=== PATIENT | female | born 1935 | race Caucasian/White ===

== ENCOUNTER 2017-03-10 09:42 | Emergency (ER) | payer OTHER ==
--- NOTE | 2017-03-10 09:57 | PDOC ---
History of Present Illness - General History Source: Patient, Family Exam Limitations: No Limitations - History of Present Illness Initial Comments: 03/10/17 10:46 The patient is a 81 year old female, with a significant past medical history of ASHD, asthma, CAD( s/p stents), TIA, hypertension, hyperlipidemia, and GI bleeds, who presents to the emergency department complaining of a cough, fever, and chest tightness for approximately 5 days. The patient reports she has been experiencing a cough productive of yellow sputum since the onset of her symptoms. Daughter reports a TMax of 101 F last night. Patient reports associated chest tightness, wheezing, and headache. She states she has been using her albuterol 2-3 times a day, with minimal relief. Patient reports she wanted to visit her PCP Dr. Huynh for her symptoms, but was unable to get an appointment any time soon. Patient reports her symptoms have worsened since their onset. She states she lives at home with her daughters family and states her son in law had the flu earlier this week. She reports returning from [place] approximately 1 month ago. She reports shortness of breath but denies any chest pain, diaphoresis, palpitations, lower extremity edema, or lightheadedness. She denies any chills or dizziness. She reports some abdominal pain in the past month, but denies any nausea, vomiting, diarrhea, constipation , melena, or hematochezia. She reports increased urinary frequency, but denies dysuria or hematuria. Allergies: Iodine PCP: Dr. Huynh Consulting Actuary: Dr. Louise Grocery Supervisor: Dr. Redd <Nate Cash - Last Filed: 03/10/17 17:01> <Dameon Mon - Last Filed: 03/12/17 07:24> - General Chief Complaint: Shortness of Breath Stated Complaint: DIFFICULTY BREATHING Time Seen by Provider: 03/10/17 09:56 Past History <Nate Cash - Last Filed: 03/10/17 17:01> - Past Medical History Asthma: Yes Cardiac Disorders: Yes (CAD) GI Disorders: Yes (GI bleed) HTN: Yes Hypercholesterolemia: Yes - Surgical History Cardiac Surgery: Yes (CARD STENT) Cholecystectomy: Yes - Psycho/Social/Smoking Cessation Hx Anxiety: No Suicidal Ideation: No Smoking History: Never smoked Hx Alcohol Use: No Drug/Substance Use Hx: No <Dameon Mon - Last Filed: 03/12/17 07:24> - Past Medical History Allergies/Adverse Reactions: Allergies Allergy/AdvReac Type Severity Reaction Status Date / Time iodine Allergy Verified 03/10/17 09:57 Home Medications: Ambulatory Orders Albuterol Sulfate [Proair Respiclick] 90 mcg IH DAILY 03/10/17 Amlodipine Besylate 5 mg PO DAILY 03/10/17 Aspirin [ASA -] 81 mg PO DAILY 03/10/17 Atorvastatin Ca [Lipitor] 10 mg PO HS 03/10/17 Losartan Potassium 25 mg PO DAILY 03/10/17 Metoprolol Succinate [Toprol Xl -] 25 mg PO DAILY 03/10/17 Ranolazine [Ranexa -] 500 mg PO BID 03/10/17 Review of Systems - Review of Systems Able to Perform ROS?: Yes Comments:: 03/10/17 10:46 GENERAL/CONSTITUTIONAL: Yes: +fever. No chills. No weakness. HEAD, EYES, EARS, NOSE AND THROAT: No change in vision. No ear pain or discharge. No sore throat. CARDIOVASCULAR: Yes: +shortness of breath, +chest tightness. RESPIRATORY: Yes: +cough, +wheezing., +dyspnea on exertion. No hemoptysis. GASTROINTESTINAL: Yes: +abdominal pain. No nausea, vomiting, diarrhea or constipation. GENITOURINARY: Yes: +frequency. No dysuria or hematuria. MUSCULOSKELETAL: No joint or muscle swelling or pain. No neck or back pain. SKIN: No rash NEUROLOGIC: Yes: +headache. No vertigo, loss of consciousness, or change in strength/sensation. ENDOCRINE: No increased thirst. No abnormal weight change. HEMATOLOGIC/LYMPHATIC: No anemia, easy bleeding, or history of blood clots. ALLERGIC/IMMUNOLOGIC: No hives or skin allergy. <Nate Cash - Last Filed: 03/10/17 17:01> *Physical Exam - Vital Signs Last Vital Signs Temp Pulse Resp BP Pulse Ox 98.7 F 87 18 144/71 98 03/10/17 09:53 03/10/17 09:53 03/10/17 09:53 03/10/17 09:53 03/10/17 10:00 - Physical Exam Comments: 03/10/17 10:47 GENERAL: Awake, alert, and fully oriented, in no acute distress HEAD: No signs of trauma EYES: PERRLA, EOMI, sclera anicteric, conjunctiva clear ENT: Auricles normal inspection, hearing grossly normal, nares patent, oropharynx clear without exudates. Moist mucosa NECK: Normal ROM, supple, no lymphadenopathy, JVD, or masses LUNGS: Diminished breath sounds. Clear to auscultation bilaterally. No wheezes , and no crackles HEART: Regular rate and rhythm, normal S1 and S2, no murmurs, rubs or gallops ABDOMEN: +Mild tenderness to palpation in LLQ. Soft, normoactive bowel sounds. No guarding, no rebound. No masses EXTREMITIES: Normal range of motion, no edema. No clubbing or cyanosis. No cords, erythema, or tenderness NEUROLOGICAL: Cranial nerves II through XII grossly intact. Normal speech, normal gait SKIN: Warm, Dry, normal turgor, no rashes or lesions noted. <Nate Cash - Last Filed: 03/10/17 17:01> Heart Score/ECG Review - ECG Intrepretation Comment:: 03/10/17 17:01 Vent Rate: 90 bpm IMPRESSION: Normal sinus rhythm. <Nate Cash - Last Filed: 03/10/17 17:01> ED Treatment Course - LABORATORY CBC & Chemistry Diagram: 03/10/17 10:25 03/10/17 10:25 - RADIOLOGY Radiograph Interpretation: 03/10/17 11:17 EXAM: CXR INTERPRETED BY: Dr. Figueroa REVIEWED BY: Dr. Mon IMPRESSION: A single view reveals a weak reveals a sclerotic knob, prominent percy, large heart but no sign of true infiltrate or failure. The angles are sharp. The bones and soft tissues are intact. There is little change since the prior percussion instructor study of 05/20/2016. Correlation recommended <Nate Cash - Last Filed: 03/10/17 17:01> - LABORATORY CBC & Chemistry Diagram: 03/10/17 10:25 03/10/17 10:25 <Dameon Mon - Last Filed: 03/12/17 07:24> Medical Decision Making - Medical Decision Making 03/10/17 12:25 First call placed to Dr. Huynh at 12:25. Case discussed at this time. <Nate Cash - Last Filed: 03/10/17 17:01> - Medical Decision Making 03/10/17 13:45 Rx called to [facility] in [facility] [phone] Levaquin, Medrol Dose Pack and Albuterol Inhaler 03/10/17 13:[address] Bernardo, who spoke with the patient's daughter. Will DC, Rx Called to Pharmacy in [facility]. Patient seen in concert with Internal Medicine Resident, Jacobo Valentin. I agree with his assessment and plan <Dameon Mon - Last Filed: 03/12/17 07:24> *DC/Admit/Observation/Transfer - Attestations Scribe Attestion: 03/10/17 10:47 Documentation prepared by Nate Cash, acting as medical or surgical instrument maker for Dameon Mon MD. <Nate Cash - Last Filed: 03/10/17 17:01> - Discharge Dispostion Admit: No - Attestations Physician Attestion: 03/10/17 09:57 I, Dr. Dameon Mon, attest that this document has been prepared under my direction and personally reviewed by me in its entirety. I further attest, that it accurately reflects all work, treatment, procedures and medical decision -making performed by me. <Dameon Mon - Last Filed: 03/12/17 07:24> Diagnosis at time of Disposition: Bronchitis - Discharge Dispostion Disposition: HOME Condition at time of disposition: Good - Referrals Referrals: Suresh Huynh MD [Primary Care Provider] - - Patient Instructions Printed Discharge Instructions: DI for Acute Bronchitis Additional Instructions: I called prescriptions to the [facility] in [facility], . Levaquin, Medrol and Albuterol. Hope you feel better soon. Best- Dr. Dameon Mon
[2017-03-10 09:58] VITALS: BMI 31.1
--- NOTE | 2017-03-10 10:37 | PDOC ---
History of Present Illness - General Chief Complaint: Shortness of Breath Stated Complaint: DIFFICULTY BREATHING Time Seen by Provider: 03/10/17 09:56 History Source: Patient, Family (daughter) Exam Limitations: No Limitations - History of Present Illness Initial Comments: 81 y/o F w/PMH of ASHD, HTN, hypercholesterolemia, TIA, asthma, diverticulosis presents to the ER with c/o worsening cough w/yellow sputum, shortness of breath , chest tightness (with no radiation of pain), headache since Monday. Pt had a fever of 101 yesterday night and has been using alb nebs which she normally does not use. She feels like she also has wheezing and c/o increased difficulty with breathing when walking. She has light-headedness and dizziness which she states is her usual and is not worsened at this time. She also had some nausea and vomiting over this time but is not nauseous at this time. She was in [place] 1 month ago and son in law is sick with the cold. She c/o increased urinary frequency. She has some LLQ abd pain over the last month but denies any blood in the stool. She also denies any peripheral swelling. 03/10/17 10:40 03/10/17 10:44 Past History - Past Medical History Allergies/Adverse Reactions: Allergies Allergy/AdvReac Type Severity Reaction Status Date / Time iodine Allergy Verified 03/10/17 09:57 Home Medications: Ambulatory Orders Albuterol Sulfate [Proair Respiclick] 90 mcg IH DAILY 03/10/17 Amlodipine Besylate 5 mg PO DAILY 03/10/17 Aspirin [ASA -] 81 mg PO DAILY 03/10/17 Atorvastatin Ca [Lipitor] 10 mg PO HS 03/10/17 Losartan Potassium 25 mg PO DAILY 03/10/17 Metoprolol Succinate [Toprol Xl -] 25 mg PO DAILY 03/10/17 Ranolazine [Ranexa -] 500 mg PO BID 03/10/17 Asthma: Yes Cardiac Disorders: Yes (CAD) GI Disorders: Yes (GI bleed) HTN: Yes Hypercholesterolemia: Yes - Surgical History Cardiac Surgery: Yes (CARD STENT) Cholecystectomy: Yes - Immunization History Immunization Up to Date: No - Psycho/Social/Smoking Cessation Hx Anxiety: No Suicidal Ideation: No Smoking History: Never smoked Have you smoked in the past 12 months: No Information on smoking cessation initiated: No Hx Alcohol Use: No Drug/Substance Use Hx: No Substance Use Type: None Review of Systems - Review of Systems Able to Perform ROS?: Yes Comments:: CONSTITUTIONAL: +fever Absent: no chills, no fatigue 0ENT: Absent: ear pain CARDIOVASCULAR: +chest tightness Absent: chest pain, no palpitations RESPIRATORY: dyspnea w/exertion, SOB, cough GI: +abd pain LLQ, nausea, vomiting Absent: no constipation, no diarrhea, blood in stool GENITOURINARY: +frequency Absent: dysuria, no frequency, no hematuria MUSCULOSKELETAL: +back pain (chronic) Absent: no arthralgia, no myalgia SKIN: Absent: rash NEURO: +headache *Physical Exam - Vital Signs Last Vital Signs Temp Pulse Resp BP Pulse Ox 98.7 F 87 18 144/71 98 03/10/17 09:53 03/10/17 09:53 03/10/17 09:53 03/10/17 09:53 03/10/17 10:00 - Physical Exam Comments: GENERAL: Well-appearing, well-nourished. No apparent distress. HEENT: Normocephalic, atraumatic. EOM intact. CARDIOVASCULAR: Normal S1, S2. Regular rate and rhythm. PULMONARY: Diminished breath sounds. Clear to auscultation bilaterally. No wheezing, no rhonchi. ABDOMEN: +mild tenderness to palpation in LLQ Soft, non-distended, non-tender. EXTREMITIES: Normal ROM in all four extremities. No gross deformities. No edema. SKIN: Warm, dry. NEUROLOGICAL: No focal neurological deficits. Heart Score/ECG Review - [place] Comment: NSR @ [address] segment changes noted QTc 442 ms ED Treatment Course - LABORATORY CBC & Chemistry Diagram: 03/10/17 10:25 03/10/17 10:25 - RADIOLOGY Radiology Studies Ordered: Category Date Time Status CXRPORT [CHEST X-RAY PORTABLE*] [RAD] Urgent Radiology 03/10/17 10:24 Ordered Medical Decision Making - Medical Decision Making 03/10/17 10:33 Will work up for PNA - ordered: CBC, CMP, Blood culture, CXR. Will also get EKG for chest tightness and cardiac profile. 03/10/17 10:44 EKG: NSR @ 90 bpm w/no ST changes 03/10/17 11:53 CXR with no acute pathology, WBC 10.3 Awaiting UA. *DC/Admit/Observation/Transfer Diagnosis at time of Disposition: Bronchitis - Discharge Dispostion Disposition: HOME Condition at time of disposition: Good - Referrals Referrals: Suresh Huynh MD [Primary Care Provider] - - Patient Instructions Printed Discharge Instructions: DI for Acute Bronchitis Additional Instructions: I called prescriptions to the [facility] in [facility], . Levaquin, Medrol and Albuterol. Hope you feel better soon. Best- Dr. Dameon Mon
[2017-03-10 10:50] LABS: BASOPHIL 0.4 % (0-2.0); EOSINOPHIL 0.3 % (0-4.5); MCH 28.7 pg (25.7-33.7); MCHC 33.1 g/dl (32.0-36.0); MEAN CELL VOLUME 86.6 fl (80-96); MEAN PLT VOLUME 8.8 fl (7.5-11.1); NEUTROPHILS 76.9 % (42.8-82.8); PLATELET COUNT 341 K/MM3 (134-434); RDW 14.1 % (11.6-15.6); WHITE BLOOD COUNT 10.3 K/mm3 (4.0-10.0)
[2017-03-10 11:08] LABS: ALBUMIN 4.1 g/dl (3.4-5.0); BILIRUBIN,TOTAL 0.4 mg/dL (0.2-1.0); CALCIUM 10.7 mg/dL (8.5-10.1); COCKROFT - GAULT 49.6485; CREATININE 1.1 mg/dL (0.55-1.02); TOT PROT 7.9 g/dl (6.4-8.2)
[2017-03-10 11:47] LABS: URINE APPEARANCE SLCLOUDY; URINE BILIRUBIN NEGATIVE (NEGATIVE); URINE BLOOD NEGATIVE (NEGATIVE); URINE COLOR AMBER; URINE GLUCOSE (UA) NEGATIVE (NEGATIVE); URINE KETONE TRACE (NEGATIVE); URINE LEUK ESTERASE NEGATIVE (NEGATIVE); URINE NITRITE NEGATIVE (NEGATIVE); URINE UROBILINOGEN NEGATIVE E.U./dl (0.2-1.0)
[2017-03-10 11:47] LABS: TROPONIN I < 0.02 ng/ml (0.00-0.05)
[2017-03-10 11:50] LABS: URINE PROTEIN 1+ (NEGATIVE)
[2017-03-10 11:52] LABS: GRANULAR CASTS 18 /lpf; URINE BACTERIA RARE /hpf (NONE SEEN); URINE HYALINE CAST 5 /lpf; URINE MUCUS MANY; URINE RBC 9 /hpf (0-3); URINE WBC 9 /hpf (3-5)
[2017-03-10] MEDS ORDERED: ALBUTEROL SO4 0.083% IH SOL 2.5 MG/3 ML VIAL.NEB. NEB ONE (12:09)
[2017-03-10] MEDS ORDERED: LEVOFLOXACIN 750 MG IVPB 150 ML IVPB ONE ×2 (12:23→13:27)
[2017-03-10] MEDS ORDERED: methylPREDNISolone NA SUCC 125 MG/2 ML VIAL IVPB ONE (13:40)
[2017-03-10] MEDS ORDERED: methylPREDNISolone NA SUCC 125 MG/2 ML VIAL ONE (14:43)
[2017-03-10 16:10] VITALS: BP 140/76; PULSE 83; TEMP 98.1
--- NOTE | 2017-03-10 16:11 | EKG ---
Test Reason : Blood Pressure : / mmHG Vent. Rate : 090 BPM Atrial Rate : 090 BPM P-R Int : 150 ms QRS Dur : 092 ms QT Int : 362 ms P-R-T Axes : 049 053 049 degrees QTc Int : 442 ms NORMAL SINUS RHYTHM NORMAL ECG WHEN COMPARED WITH ECG OF 21-DEC-2015 10:22, CRITERIA FOR ANTERIOR INFARCT ARE NO LONGER PRESENT Confirmed by LINK POND MD ([id number]) on 03/10/2017 4:10:42 PM Referred By: Confirmed By:LINK POND MD
== END 2017-03-10 16:09 | disposition home or self-care (01) ==
LOC: JER 09:42
PROC: 3E0F7GC Introduction of Other Therapeutic Substance into Respiratory Tract, Via Natural or Artificial Opening (ICD-10-PCS; principal; 2017-03-10)
PROC: 3E03329 Introduction of Other Anti-infective into Peripheral Vein, Percutaneous Approach (ICD-10-PCS; 2017-03-10)
PROC: 3E0333Z Introduction of Anti-inflammatory into Peripheral Vein, Percutaneous Approach (ICD-10-PCS; 2017-03-10)
DX: J20.9 Acute bronchitis, unspecified (principal); I25.10 Atherosclerotic heart disease of native coronary artery without angina pectoris; I10 Essential (primary) hypertension; Z95.5 Presence of coronary angioplasty implant and graft; E78.5 Hyperlipidemia, unspecified; Z86.73 Personal history of transient ischemic attack (TIA), and cerebral infarction without residual deficits
CPT/HCPCS: 36415; 71010-TC; 80053; 81003; 81015; 82550; 84484; 85025; 87040; 93005; 93010; 94640; 96365; 96375; 99285-25